=== PATIENT | male | born 1955 ===

== ENCOUNTER 2018-02-05 08:23 | Emergency (ER) | payer BC ==
--- NOTE | 2018-02-05 10:10 | UC ---
Shoulder Pain HPI - HPI Summary HPI Summary: PATIENT PRESENTS WITH SUDDEN ONSET OF PROGRESSIVELY WORSENING PAIN IN HIS RIGHT SHOULDER OVER THE PAST 2 DAYS. NO SPECIFIC INJURY OR TRAUMA. HE IS VERY ACTIVE AND HAD STACKED FIREWOOD, WEED WHACKED THE LAWN AND VACUUMED THE HOUSE THE DAY HIS SYMPTOMS STARTED. NO PREVIOUS SHOULDER PATHOLOGY. - History of Current Complaint Chief Complaint: UCUpperExtremity Stated Complaint: RIGHT SHOULDER PAIN Time Seen by Provider: 02/05/18 09:47 Hx Obtained From: Patient Onset/Duration: Gradual Onset, Lasting Days, Still Present Timing: Constant Severity Initially: Moderate Severity Currently: Moderate Location Of Pain: Is Discrete @ - RIGHT ANTERIOR SHOULDER Pain Intensity: 7 Pain Scale Used: 0-10 Numeric Character: Sharp Aggravating Factor(s): Movement Alleviating Factor(s): Rest Associated Signs And Symptoms: Negative: Swelling, Redness, Weakness, Numbness/ Tingling Related History: Dominant Hand Right - Allergies/Home Medications Allergies/Adverse Reactions: Allergies Allergy/AdvReac Type Severity Reaction Status Date / Time No Known Allergies Allergy Verified 02/05/18 08:41 Home Medications: Home Medications Amoxicillin/Clavulanate TAB* [Augmentin TAB 875*] 875 mg PO BID 02/05/18 [ History Confirmed 02/05/18] PMH/Surg Hx/FS Hx/Imm Hx Previously Healthy: Yes - Surgical History Surgical History: Yes Surgery Procedure, Year, and Place: BILATERAL INGUINAL HERNIA REPAIR WITH [facility] - Family History Known Family History: Positive: Unknown - PT ADOPTED - Social History Alcohol Use: Occasionally Substance Use Type: None Smoking Status (MU): Former Smoker When Did the Patient Quit Smoking/Using Tobacco: 2005 - Immunization History Most Recent Influenza Vaccination: NOT THIS SEASON Review of Systems Constitutional: Negative Skin: Negative Respiratory: Negative Cardiovascular: Negative Gastrointestinal: Negative Musculoskeletal: Arthralgia, Decreased ROM All Other Systems Reviewed And Are Negative: Yes Physical Exam Triage Information Reviewed: Yes Appearance: Well-Appearing, Well-Nourished, Pain Distress - PT IN MOD/SEVERE PAIN WITH ANY MOVEMENT OF RIGHT SHOULDER Vital Signs: Initial Vital Signs Temp 98 F 02/05/18 08:42 Pulse 60 02/05/18 08:42 Resp 16 02/05/18 08:42 BP 137/82 02/05/18 08:42 Pulse Ox 99 02/05/18 08:42 Vital Signs Reviewed: Yes Eyes: Positive: Conjunctiva Clear ENT: Positive: Hearing grossly normal Neck: Positive: Supple Respiratory: Positive: No respiratory distress, No accessory muscle use Cardiovascular: Positive: Pulses Normal Abdomen Description: Positive: Soft Musculoskeletal: Positive: No Edema, ROM Limited @ - RIGHT SHOULDER, Other: - POINT TENDERNESS RIGHT SHOULDER ANTERIOR GH JOINT. POSITIVE EMPTY CAN TEST. Neurological: Positive: Alert Psychological: Positive: Age Appropriate Behavior Skin: Negative: rashes Diagnostics - Radiology RIGHT SHOULDER XRAYS Xray Interpretation: Positive (See Comments) - CALCIFIC TENDINITIS OF THE SUPRASPINATUS TENDON WITH MODERATE DEGREE OF AC JOINT ARTHRITIS Radiology Interpretation Completed By: Radiologist Shoulder Course/Dx - Differential Dx/Diagnosis Provider Diagnoses: RIGHT SHOULDER CALCIFIC TENDONITIS Discharge - Sign-Out/Discharge Documenting (check all that apply): Discharge/Admit/Transfer - Discharge Plan Condition: Stable Disposition: HOME Prescriptions: HYDROcodone/ACETAMIN 5-325 MG* [[place] 5-325 TAB*] 1 tab PO Q6H PRN #15 tab MDD 4 PRN Reason: Pain Meloxicam [Mobic] 7.5 mg PO BID PRN #30 tab PRN Reason: Pain Patient Education Materials: Calcific Tendinitis (ED) Forms: *Work Release Referrals: Yann Jack MD [Medical Doctor] - 1 Week Johnnie Webster DO [Primary Care Provider] - Additional Instructions: RIGHT SHOULDER XRAY TODAY SHOWS CALCIFIC TENDINITIS OF THE SUPRASPINATUS TENDON WITH MODERATE DEGREE OF AC JOINT ARTHRITIS. WEAR THE SLING NEEDED. ANTI-INFLAMMATORIES NEEDED FOR PAIN. HYDROCODONE/ APAP FOR BREAKTHROUGH PAIN. CALCIFIC TENDINITIS/TENDINOSIS YOUR XRAY SHOWS A CALCIUM DEPOSIT IN THE TENDONS OF YOUR SHOULDER. THIS COULD BE CONTRIBUTING TO YOUR SYMPTOMS. SUCCESSFUL MANAGEMENT OFTEN CONSISTS OF MEDICATION, A SLING AND PHYSICAL THERAPY. OCCASIONALLY INJECTIONS MAY BE INDICATED. IN RARE CASES SURGERY MAY BE CONSIDERED. The onset of symptoms is usually spontaneous and is associated with the rapid development of excruciating shoulder pain and inability to sleep. The patient is exceedingly tender to palpation and has extreme pain with any attempted motion of the shoulder. There may be warmth and fullness. Elbow and hand motion are normal and circulation/neurologic examination is intact. FOLLOW-UP WITH [facility]TH[facility] FOR FURTHER EVALUATION AND MANAGEMENT. - Billing Disposition and Condition Condition: STABLE Disposition: HOME
--- NOTE | 2018-02-05 10:22 | RAD ---
Indication: Right shoulder pain. 4 views of the right shoulder demonstrates no fracture. There is calcific tendinitis of the distal supraspinatous tendon. Moderate degree of AC joint arthritis is noted. IMPRESSION: Calcific tendinitis of the supraspinatus tendon with moderate degree of AC joint arthritis.
[2018-02-05 10:35] VITALS: BP 143/87
== END 2018-02-05 11:04 | disposition home or self-care (01) ==
LOC: UCCORT 08:23
DX: M75.31 Calcific tendinitis of right shoulder (principal); Z87.891 Personal history of nicotine dependence
CPT/HCPCS: 99213; G0463